=== PATIENT | female | born 1975 | race Caucasian/White ===

== ENCOUNTER → 2020-01-23 07:44 | Outpatient (CLI) | payer OTHER, SELFPAY ==
--- NOTE | ~2020-01-23 | MM_ITS ---
EXAMINATION: MM diagnostic [facility] BI w khadijah HISTORY: Six-month follow-up of probable benign right breast mammographic asymmetry and benign left b reast calcifications TECHNIQUE: Additional 3-D tomosynthesis images of were performed and synthetic 2-D images were genera neeru. CAD analysis was submitted and interpreted. COMPARISON: 04/10/2019 bilateral diagnostic digital mammogram and limited right breast ultrasound 01/13/2017 bilateral digital screening mammogram Density: There are scattered areas of fibroglandular density. FINDINGS: There are multiple grouped microcalcifications in the very posterior lower central left zee ast slightly lateral to midline, associated fat density. These are likely calcifications of fat necro sis. No suspicious mass, architectural distortion., Malignant calcification, skin thickening or retraction or significant new or developing density is evident since 01/13/2017. IMPRESSION: 1. No mammographic evidence of malignancy 2. Routine mammographic screening is recommended. BI-RADS Category 2: Benign finding(s). Reviewed, dictated and finalized at location A.
== END ==
PROVIDERS: Visit Provider Obstetrics & Gynecology
DX: R92.8 Other abnormal and inconclusive findings on diagnostic imaging of breast (principal)
CPT/HCPCS: 77062; 77066; G0279

== ENCOUNTER 2021-04-02 09:28 | Emergency (ER) | payer OTHER, SELFPAY ==
[2021-04-02 09:38] VITALS: BP 121/81; PULSE 95; RESP 16; TEMP 36.2; O2SAT 98
--- NOTE | 2021-04-02 10:24 | ED.URI ---
HPI - URI/Sore Throat General Chief Complaint: Upper Respiratory Infection Stated Complaint: Sore Throat Time Seen by Provider: 04/02/21 10:24 Source: patient and RN notes reviewed Mode of arrival: ambulatory Limitations: no limitations History of Present Illness HPI Narrative: 45-year-old female presents with concern for sore throat. Reports sore throat started Monday, on she began having chills. Reports chills and general malaise yesterday. She denies cough, shortness of breath, rhinorrhea, nasal congestion. Reports mild headache. Denies any known sick exposure. Just back here bites and I have been reports she just MD elicited complaint: sore throat Related Data Home Medications Medication Instructions Recorded Confirmed No Home Medications 04/02/21 04/02/21 Allergies Allergy/AdvReac Type Severity Reaction Status Date / Time No Known Allergies Allergy Verified 04/02/21 09:44 Review of Systems Review of Systems: CONSTITUTIONAL: Reports malaise, sweats, chills EYES: Denies visual changes, redness, or discharge. ENT: Denies rhinorrhea, congestion, sinus pain, otalgia. Reports sore throat. CARDIOVASCULAR: Denies chest pain, palpitations, or edema. RESPIRATORY: Denies cough or dyspnea. GASTROINTESTINAL: Denies abdominal pain, nausea, vomiting, diarrhea SKIN: Denies rash or itching. MUSCULOSKELETAL: Denies myalgia. NEUROLOGIC: Denies headache. All systems reviewed & are unremarkable except as noted in HPI and below PMFSH Past Medical History Medical History (Updated 04/02/21 @ 10:33 by Orly Meyer NP) Ectopic Surgical History Surgical History (Updated 06/08/19 @ 09:24 by Felicita Fraser, [facility], ) H/O left nephrectomy Social History Social History Smoking status: Former smoker Alcohol intake: current Comments At time of signature, agree with nursing past medical, surgical, social and family history. There is no relevant family history pertinent to the presenting complaint Exam Narrative: GENERAL: Well-appearing, well-nourished, and in no acute distress. HEAD: Normocephalic EYES: PERRLA, conjunctivae clear ENT: Nares clear, no discharge. Mucous membranes moist. TM pearly galindo with sharp light reflex bilaterally; no tragal tenderness. Oropharynx erythematous without lesions. Tonsils enlarged and without exudate, no drooling, no hoarseness, no trismus, uvula midline. NECK: Supple. No lymphadenopathy CHEST: Clear to auscultation, breath sounds equal. No wheezing, rhonchi, rales, or stridor. No respiratory distress, speaks in full sentences. HEART: Regular rate and rhythm. No murmur heard. SKIN: Warm, dry, no rash. NEURO: Alert and oriented x3. PSYCH: Normal mood and affect Course Course Emergency Course: Patient is aware of diagnosis, understands and agrees to treatment plan. Anticipatory guidance given. Patient agrees to follow-up as directed and is aware of reasons to seek care at the emergency department. Portions of this record may have been created with voice recognition software Vital Signs Vital signs: Vital Signs Temperature 97.2 F L 04/02/21 09:38 Pulse Rate 95 04/02/21 09:38 Respiratory Rate 16 04/02/21 09:38 Blood Pressure 121/81 04/02/21 09:38 Pulse Oximetry 98 04/02/21 09:38 Temperature 97.2 F L 04/02/21 09:38 Pulse Rate 95 04/02/21 09:38 Respiratory Rate 16 04/02/21 09:38 Blood Pressure 121/81 04/02/21 09:38 Pulse Oximetry 98 04/02/21 09:38 Reviewed. MDM - URI/Sore Throat MDM Narrative Medical decision making narrative: Differential diagnosis considered: Herrera virus, strep pharyngitis, allergic rhinitis, upper respiratory tract infection, sinusitis, rhinosinusitis, nasopharyngitis. viral pharyngitis, otitis media, otitis externa, pneumonia, bronchitis, viral cough syndrome, viral syndrome, and influenza. Exam findings show no acute concerns or changes; patient is non-toxic appearing and is in no distress. Keven
== END 2021-04-02 10:40 | disposition home or self-care (01) ==
PROVIDERS: Emergency Provider Nurse Practitioner
DX: J02.0 Streptococcal pharyngitis (principal); Z90.5 Acquired absence of kidney; Z87.891 Personal history of nicotine dependence
CPT/HCPCS: 87880; 99213; G0463

== ENCOUNTER 2021-06-27 10:44 | Emergency (ER) | payer OTHER, SELFPAY ==
--- NOTE | ~2021-06-27 | XR_ITS ---
EXAMINATION: XR chest 2V EXAM DATE: 06/27/2021 12:11 INDICATION: Cough; non smoker. TECHNIQUE: Frontal and lateral projections of the chest obtained and reviewed. Comparison is made to prior examination from 12/15/2014. FINDINGS: The lungs are clear. There are no pleural effusions. The cardiomediastinal silhouette is within normal limits. There is no pneumothorax suspected. The bones and soft tissues are unremarkab le. IMPRESSION: No acute cardiopulmonary findings. Reviewed, dictated and finalized at location A. [employer]
--- NOTE | 2021-06-27 11:58 | ED.GENADULT ---
HPI - General Adult General Chief complaint: Upper Respiratory Infection Stated complaint: cough,wheezing Source: patient Mode of arrival: ambulatory Limitations: no limitations History of Present Illness HPI narrative: Patient presents for evaluation of respiratory for the last week. She reports productive cough of clear sputum with clear rhinorrhea, wheezing and shortness of breath. She took a Covid test at home 5 days ago which was. She called her primary care provider in the middle of last week and received a prescription for prednisone 20 mg with directions take 1 by mouth twice daily for 5 days, azithromycin, Tessalon Perles, albuterol. She has not had considerable improvement in her symptoms since that time. She indicates she had strep a little over a month ago and completed azithromycin which seemed to help. Her mother has some respiratory symptoms as well. She states she had COVID in the past and has also received both doses of her COVID vaccination. She does not smoke. She has experienced some diarrhea but denies fever, chills, nausea, vomiting. She states she has had pneumonia in the past. Related Data Home Medications Medication Instructions Recorded Confirmed No Home Medications 04/02/21 04/02/21 Allergies Allergy/AdvReac Type Severity Reaction Status Date / Time No Known Allergies Allergy Verified 06/27/21 11:22 Review of Systems Review of Systems: CONSTITUTIONAL: Denies fever, chills, or sweats. EYES: Denies visual changes, redness, or discharge. ENT: Reports clear rhinorrhea. Denies otalgia or difficulty swallowing CARDIOVASCULAR: Denies chest pain, palpitations, or edema. RESPIRATORY: Reports cough with shortness of breath and wheezing GASTROINTESTINAL: Reports diarrhea. Denies abdominal pain, nausea, or vomiting GENITOURINARY: Denies dysuria or hematuria. SKIN: Denies rash or itching. MUSCULOSKELETAL: Denies back pain, joint pain, or myalgia. NEUROLOGIC: Denies headache, numbness, dizziness, or weakness. PSYCHIATRIC: Denies anxiety or depression. [facility] Past Medical History Medical History (Updated 06/27/21 @ 12:46 by Danyel Obrien, TAMY, ) Ectopic Surgical History Surgical History H/O left nephrectomy History of heart surgery Family History Family History Mother Breast cancer Father Alzheimer's dementia Social History Social History Smoking status: Former smoker Alcohol intake: current Substance use type: marijuana Other substance usage details: occasional Living arrangements: with family Gender identity (if verbalized by the patient): Female Sexual Orientation (if Verbalized by the Patient): Straight or Heterosexual Spiritual care concerns: No Exam Narrative: GENERAL: Well-appearing, well-nourished, and in no acute distress. HEAD: Normocephalic, atraumatic. EYES: PERRLA and EOMI. ENT: Nares clear, no rhinorrhea or epistaxis. Mucous membranes moist. Oropharynx without tonsillar hypertrophy exudate or other lesions. Bilateral TMs pearly galindo nonbulging NECK: Supple. No adenopathy or masses. No carotid bruits or JVD CHEST: Mild inspiratory and expiratory wheezing. Cough noted on exam HEART: Regular rate and rhythm. No murmur heard. Normal peripheral pulses. ABDOMEN: Soft, nontender, nondistended, normal active bowel sounds. EXTREMITIES: Normal range of motion. No edema. SKIN: Warm, dry, no rash. NEURO: No focal deficits. Alert and oriented x3. PSYCH: Normal mood and affect. Course Course Emergency Course: This a 46-year-old female who presented with complaints of respiratory symptoms. Chest x-ray was negative. Influenza and Covid were negative. She declined strep screening. Likely viral illness. Provided with nebulizer treatment here. She states t
[2021-06-27] MEDS: ALBUTEROL SULFATE NEB 2.5 MG/3 ML INH INHALATION (12:12)
[2021-06-27] MEDS: IPRATROPIUM BR 0.02% INH SOLN 0.5 MG/2.5 ML VIAL INHALATION (12:13)
[2021-06-27 12:37] VITALS: PULSE 72; RESP 18; O2SAT 98
== END 2021-06-27 12:57 | disposition home or self-care (01) ==
PROVIDERS: Emergency Provider Nurse Practitioner; PCP Family Medicine
DX: B34.9 Viral infection, unspecified (principal); Z20.822 Contact with and (suspected) exposure to COVID-19; Z87.891 Personal history of nicotine dependence; Z90.5 Acquired absence of kidney
CPT/HCPCS: 71046; 87426; 87804; 94640; 99213; C9803; G0463

== ENCOUNTER 2023-04-24 14:00 | Outpatient (CLI) | payer BC, OTHER, SELFPAY ==
--- NOTE | ~2023-04-24 | MM_ITS ---
EXAMINATION: MM screening [facility] BI w khadijah HISTORY: Screening mammogram TECHNIQUE: Craniocaudal and mediolateral oblique 3-D tomosynthesis images were obtained and synthetic 2-D images were generated. CAD analysis was submitted and interpreted. COMPARISON: 01/23/2020, 04/10/2019, 03/29/2019 BREAST PARENCHYMAL COMPOSITION: There are scattered areas of fibroglandular density. FINDINGS: Oil cysts are noted in the right breast. No suspicious mass, calcification, or architectura l distortion are identified in either breast to suggest malignancy. There has been no suspicious inte rval change. IMPRESSION: 1. No mammographic evidence of malignancy. 2. Recommend routine screening mammography in one year. BI-RADS Category 2: Benign finding(s). Reviewed, dictated and finalized at location A.
== END 2023-04-24 14:01 | disposition home or self-care (01) ==
LOC: ANHIMG 14:06
PROVIDERS: PCP Family Medicine; Visit Provider Obstetrics & Gynecology
DX: Z12.31 Encounter for screening mammogram for malignant neoplasm of breast (principal)
CPT/HCPCS: 77063; 77067

== ENCOUNTER 2023-08-21 01:04 | Day surgery (SDC) | payer BC, OTHER, SELFPAY ==
[2023-07-25 11:49] VITALS: BMI 29.4
--- NOTE | 2023-08-18 12:10 | SUR.PREOP ---
Patient called regarding upcoming procedure. Voicemail left regarding appointment times.
[2023-08-21 06:22] VITALS: BP 147/65; PULSE 66; RESP 18; TEMP 36.3; O2SAT 96
[2023-08-21] MEDS: LACTATED RINGERS 1,000 ML 150 ML IV CONT (06:41)
--- NOTE | 2023-08-21 06:42 | P.PNAN_ITS ---
Anes - Initial Pre Proc Eval Procedure: Operation Date: 08/21/23 07:30 Proposed Procedures p Screening Colonoscopy - Dhaval Kenney MD Date/Time: 08/21/23 06:42 Surgeon: Dhaval Kenney MD Pre Op Diagnosis: neoplasm screening Patient Data Age: 48 Gender: F Height: 1.78 m Weight: 93.4 kg Allergies Allergy/AdvReac Type Severity Reaction Status Date / Time No Known Allergies Allergy Verified 08/21/23 06:21 Home Medications Medication Instructions Recorded Confirmed Type No Home Medications 07/25/23 07/25/23 History Patient hx anesthesia problems: none Family hx anesthesia problems: none Results Review: All pre-operative results and documents have been reviewed as part of the pre- operative evaluation. [facility] Past Medical History Medical History (Updated 08/21/23 @ 06:43 by Ian Mcginnis MD) Depression Ectopic Surgical History Surgical History H/O left nephrectomy History of bilateral breast reduction surgery History of heart surgery History of tubal ligation Family History Family History Mother Breast cancer Father Alzheimer's dementia Social History Social History Smoking status: Former smoker Tobacco type: cigarettes Alcohol intake: current Drinks per week: 10 Substance use: current Substance use type: marijuana Other substance usage details: occasional Last use: once a month Living arrangements: with family Gender identity (if verbalized by the patient): Female Sexual Orientation (if Verbalized by the Patient): Straight or Heterosexual Spiritual care concerns: No Anes - Eval Final PreProcedure Day of Procedure 08/21/23 06:42 Patient weight: overweight Heart: regular rate and rhythm Lungs: clear to auscultation Airway: Mallampati scale class II Neurological: alert and oriented Last oral intake: >/= 8 hours ASA classification: II Emergent: no Anesthetic plan: proceed Anesthesia type and monitoring: general GIVS and standard monitoring Results Review: All pre-operative results and documents have been reviewed as part of the pre- operative evaluation. Informed Consent: The patient's anesthetic plan and its attendant risks and benefits were discussed with the patient/family/POA. Questions were solicited and answers provided to the satisfaction of the patient/family/POA.
--- NOTE | 2023-08-21 07:28 | PM.HPGS ---
History of Present Illness History of Present Illness Consent: Risks, benefits, and alternatives have been discussed and questions answered. Patient agrees to proceed with procedure. Chief complaint: neoplasm screening Narrative: Claritza Villa is a 48 year old female here for first screening colonoscopy Review of Systems Constitutional: Constitutional: Denies headache(s) and Denies weakness Eyes: Eyes: Denies blurry vision ENT: Reports Normal hearing present, Denies headache(s) and Denies neck pain Cardiovascular: Cardiovascular: Denies chest pain and Denies dyspnea Respiratory: Respiratory: Denies dyspnea Gastrointestinal: Gastrointestinal: Reports no additional gastrointestinal complaints Genitourinary: Genitourinary: Denies dysuria Musculoskeletal: Musculoskeletal: Denies neck pain Integumentary/Breasts: Skin/Breast: Denies dry skin Neurologic: Reports Normal hearing present, Denies headache(s) and Denies weakness Psychiatric: Psychiatric: Denies anxiety Endocrine: Endocrine: Denies change in body appearance Hematologic/Lymphatic: Hematologic/Lymphatic: Denies easy bleeding Allergic/Immunologic: Allergic/Immunologic: Denies urticaria PMFSH Past Medical History Medical History (Updated 08/21/23 @ 07:28 by Dhaval Kenney MD) Colon cancer screening Depression Ectopic Surgical History Surgical History H/O left nephrectomy History of bilateral breast reduction surgery History of heart surgery History of tubal ligation Family History Family History Mother Breast cancer Father Alzheimer's dementia Social History Social History Smoking status: Former smoker Tobacco type: cigarettes Alcohol intake: current Drinks per week: 10 Substance use: current Substance use type: marijuana Other substance usage details: occasional Last use: once a month Living arrangements: with family Gender identity (if verbalized by the patient): Female Sexual Orientation (if Verbalized by the Patient): Straight or Heterosexual Spiritual care concerns: No Meds Home Medications and Allergies Home Medications Medication Instructions Recorded Confirmed Type No Home Medications 07/25/23 07/25/23 History Allergies Allergy/AdvReac Type Severity Reaction Status Date / Time No Known Allergies Allergy Verified 08/21/23 06:21 Exam Const: General: comfortable and no acute distress HENMT: Face/Nose/Sinus: Normal nares present Eyes: General: appearance normal, both eyes and all related structures Neck: Neck: no JVD Resp: Auscultation: clear to auscultation bilaterally Cardio: Rate: regular rate Rhythm: regular rhythm GI: Inspection: non-distended GI Palp: Yes Soft to palpation Skin: General skin exam: normal color Neuro: General: gait normal Speech: normal speech Extrem: General: normal to inspection Psych: Mental Status: mental status grossly normal Assessment and Plan Assessment and plan (1) Colon cancer screening: Code(s): Z12.11 - Encounter for screening for malignant neoplasm of colon Status: Acute Assessment and Plan: colonoscopy
[2023-08-21 07:51] VITALS: BP 107/63; PULSE 57; RESP 23; O2SAT 96
[2023-08-21 08:01] VITALS: BP 125/60; PULSE 53; RESP 18; O2SAT 100
[2023-08-21 08:11] VITALS: BP 142/80; PULSE 61; RESP 19; O2SAT 100
== END 2023-08-21 08:20 | disposition home or self-care (01) ==
PROVIDERS: PCP Family Medicine; Visit Provider Internal Medicine Gastroenterology
PROC: 0DJD8ZZ Inspection of Lower Intestinal Tract, Via Natural or Artificial Opening Endoscopic (ICD-10-PCS; CPT 45378; principal; 2023-08-21 07:30)
DX: Z12.11 Encounter for screening for malignant neoplasm of colon (principal); K64.8 Other hemorrhoids; K57.30 Diverticulosis of large intestine without perforation or abscess without bleeding; F32.A Depression, unspecified; F12.90 Cannabis use, unspecified, uncomplicated; Z98.890 Other specified postprocedural states; Z87.891 Personal history of nicotine dependence; Z80.3 Family history of malignant neoplasm of breast
CPT/HCPCS: 45378; J2704; J7120

== ENCOUNTER 2025-06-06 01:26 | Day surgery (SDC) | payer BC, SELFPAY ==
--- NOTE | 2025-05-31 15:59 | HP_ITS ---
This report was moved to the correct visit on 06/09/2025. The original report was signed by Nik Norris MD on 05/31/25 [id number]. H&P: HPI History of Present Illness Date/Time: 05/31/25 15:58 Chief Complaint: Procedure Narrative: stress urinary incontinence Review of Systems Review of Systems: All systems reviewed & are unremarkable except as noted in HPI and below PMFSH Past Medical History Medical History Colon cancer screening Depression Ectopic Surgical History Surgical History History of bilateral breast reduction surgery History of tubal ligation History of heart surgery H/O left nephrectomy Family History Family History Mother Breast cancer Father Alzheimer's dementia Social History Social History Years smoked: 8 Smoking status: Former smoker Tobacco type: cigarettes Alcohol intake: current Drinks per week: 3 Substance use: current Substance use type: marijuana Other substance usage details: gummies 2/month Last use: once a month Living arrangements: alone Additional living arrangements comments: daugher with shared custody 70% of the time. Gender identity (if verbalized by the patient): Female Sexual Orientation (if Verbalized by the Patient): Straight or Heterosexual Spiritual care concerns: No Meds Home Medications and Allergies Home Medications ?Medication ?Instructions ?Recorded ?Confirmed ?Type multivitamin (One Daily 1 tablet PO DAILY 04/14/25 04/14/25 Hist ory Multivitamin tablet) tirzepatide 15 mg/0.5 mL 15 mg subcut WEEKLY 04/14/25 04/14/25 Hi story subcutaneous pen injector (Mounjaro) Allergies Allergy/AdvReac Type Severity Reaction Status Date / Time No Known Allergies Allergy Verified 04/14/25 16:09 Exam Narrative: urethral mobility noted Assessment and Plan Assessment and plan (1) LUISA (stress urinary incontinence, female): Code(s): N39.3 - Stress incontinence (female) (male) Status: Acute Assessment and Plan: urethral sling/cystoscopy Please be advised this is a medical document. It is intended for [id number] communication. It is written in medical language and may contain unfamiliar abbreviations or verbiage. Medical documents are intended to carry relevant information, facts as evident, and the clinical opinion of the practitioner at the time of the encounter. This report may have been done utilizing a voice recognition system. Attempts have been made to correct errors. However, there may be uncorrected grammatical, spelling, and recognition errors present. The file time of this note does not necessarily represent the time the patient was seen. Report Initialized date/time: Nik Norris MD 05/31/25 155 Electronically signed by: Nik Norris MD 05/31/25 [id number]
[2025-06-04 09:34] VITALS: BMI 25.1
--- NOTE | 2025-06-04 09:45 | PC.NURSE ---
[facility] has started construction of its new state of the art ER which will open Spring 2026. With this, we anticipate parking may be a challenge for some our surgical patients and families. Parking spaces are limited but are available for all Surgical, obstetrics, and ER patients sharing this lot. If you arrive and find you are having a hard time finding a parking space, please note that we understand the challenges, please drive around the hospital and park near Hospital Entrance 1. When you enter this entrance, you can ask a volunteer to direct or take you back to the surgical waiting area to check in. We appreciate everyone?s understanding of these expected challenges while we build for your future. Report to the Outpatient Waiting Room, entrance under the green pavilion located off [address], at time _0745 on date _06/06/25_. Planned Procedure Time: 0945.? Time changes happen often and if your time is changed the preop area will call you the afternoon before. - You and your visitor will be asked to self-screen and do not enter if you have any COVID symptoms. Please call surgeon if you need to reschedule. - A mask is optional within the hospital at this time. Patients may have clear liquids (water, carbonated beverages, clear teas, apple juice) until 3 hours prior to surgery with a maximum of 20 ounces. - No food from midnight until time of surgery and no smoking, or chewing tobacco (or any form of nicotine). No chewing gum, candy or mints. . Take only the following medications with a SIP of water on the morning of surgery: ____NONE DO NOT STOP ANY OF YOUR OTHER PRESCRIPTION MEDICATIONS PRIOR TO SURGERY EXCEPT THE FOLLOWING Hold all vitamins and supplements for 3 days per anesthesiologist. Medications to discontinue per physician Date to take last dose Please no make-up, nail albanian, hairspray, perfume, deodorant, or body powder the day of surgery.? No jewelry (including any body piercings) or valuables the day of surgery, leave them at home.? Please take a shower or bath the night before, or the morning of, surgery with an antibacterial soap.? Wear comfortable, loose fitting clothing.? Children are encouraged to wear pajamas. - Jewelry must be removed prior to entering the operating room.? Rings and piercings that are not removed may be cut off. - The hospital will not accept responsibility for valuables.? - Please leave all valuables, including medications, at home the day of surgery. If you are going home after surgery, a licensed regional company flatbed truck driver must drive you home.? - NO public transportation without another adult if you receive anesthesia. - We recommend that an adult stay with you for 24 hours following discharge. - We also recommend that you do not drive, make important decision, drink alcoholic beverages, or take any drugs that were not prescribed by your health care provider for at least 24 hours after your discharge time. For Pediatric surgeries, we recommend two adults accompany the child home. Follow any additional instructions given to you from your surgeon. Telephone instructions given to _PATIENT_and asked if any additional questions and then verbalized understanding. Patient advised to call surgeon office or pre surgery nurse liaison [phone] if any additional questions.
--- OUTSIDE RECORDS SUMMARY | 2025-06-06 01:29 | XMS_ITS | Clinical Summary ---
Author Organization [facility] Address [address] [place] [address] Care Team Providers Care Cured Meats Supervisor Name Role Phone Unavailable Primary Care Provider Unavailabl e Source Comments [facility],non-owned Affiliates and Associated Physician Practices is amultiple site organization consisting of ambulatory clinics and hospital sitesin [place], [place], [place] and [place]. This disclosure is being madepursuant to the Care Everywhere program and may not contain all information available regarding this patient. Last updated 18.[facility] [employer] Allergies No known active allergies Medications * Be aware that medications may not be up to date on this document. Alwaysverify current medications with the patient. crisaborole (EUCRISA) 2 % ointment Apply to affected area 2 times daily Active Glycopyrronium Tosylate (QBREXZA) 2.4 % PADS 1 applicator by Apply externally route at bedtime . 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 Multiple benign nevi 08/21/2018 Rash and other nonspecific skin eruption 019 Family History Medical History Relation Name Comments Cancer - Skin, Non Melanoma Maternal Grandmother Cancer - Skin, Melanoma Neg Hx Relation Name Status Comments Maternal Grandmother Social History Tobacco Use Types Packs/Day Years Used Date Smoking Tobacco: Former Cigarettes Smokeless Tobacco: Never Alcohol Use Standard Drinks/Week Comments Yes 0 (1 standard drink = 0.6 oz pur e alcohol) weekly Comments Unknown Sex and Gender Information Value Date Recorded Sex Assigned at Not on file Legal Sex Female 3:11 PM SUGAR PRESSER Gender Identity Not on file Sexual Orientation Not on file Last Filed Vital Signs Vital Sign Reading Time Taken Comments Blood Pressure 106/80 08/21/2018 10:32 AM SUGAR PRESSER Pulse 66 08/21/2018 10:32 AM SUGAR PRESSER Temperature - - Respiratory Rate - - Oxygen Saturation - - Inhaled Oxygen Concentration - - Weight 86.2 kg (190 lb) 08/21/2018 10:32 AM SUGAR PRESSER Height 176.5 cm (5' 9.5) 08/21/2018 10:32 AM CS T Body Mass Index 27.66 08/21/2018 10:32 AM SUGAR PRESSER Plan of Treatment Health Maintenance Due Date Last Done Comments COLOGUARD (AGES 45-75) - COL ON CA SCREENING 1973 COLON MONITORING 1973 COLONOSCOPY - COLON CA SCREENING 1973 CT COLONOGRAPHY - COLON CA SCREENING 1973 Colorectal Cancer Screening 1973 FIT - COLON CA SCREENING 1973 FLEX SIG - COLON CA SCREENING 1973 LIPID TESTING 1973 MAMMOGRAM 1973 HIV SCREENING 1988 HEPATITIS C SCREENING 06/17/1991 DTAP/TDAP/TD VACCINES (1 - Tdap) 1992 HEPATITIS B VACCINE (1 of 3 - 19+ 3-dose series) 1992 SCREENING FOR DIABETES 08/22/2018 PNEUMOCOCCAL VACCINE 50+ (1 of 1 - PCV) 2023 ZOSTER VACCINE (1 of 2) 2023 DEPRESSION SCREENING 06/26/2024 COVID-19 VACCINE (1 - 2024-2 6 season) 2025 INFLUENZA VACCINE (#1) 2025 HIB VACCINE Aged Out No longer eligi ble based on patient's age to complete this topic HPV VACCINE Aged Out No longer eligi ble based on patient's age to complete this topic MENINGOCOCCAL (Group B) VACC INE SHARED DECISION-MAKING Aged Out No longer eligibl e based on patient's age to complete this topic MENINGOCOCCAL GROUPS A/C/Y/W VACCINE Aged Out No longer eligible b ased on patient's age to complete this topic [place] [address]
--- OUTSIDE RECORDS SUMMARY | 2025-06-06 01:29 | XMS_ITS | Clinical Summary ---
Author Organization [facility] Address [address] [place] [id number] Care Team Providers Care Switch Adjuster Name Role Phone Divina Garcia MD Primary Care Provider + Allergies No known active allergies Medications TIRZEPATIDE-WEIG HT MANAGEMENT SC Inject 35 Units into the skin once a week. Active Active Problems Problem Noted Date Diagnosed Date Vitamin D deficiency 05/28/2023 Encounters Date Type Department Care Team Description 04/11/2025 Results Follow-Up [facility] Family [facility] - [place] [address] [id number] Divina Garcia MD HEMOGLOBIN, GLYCOSYLATED, LIPID PANEL, COMPREHENSIVE METABOLIC PANEL, VITAMIN D, 25 OH from Last 3 Months Immunizations Immunization Administration Dates Next Due Influenza (Generic) 04/10/2020 Influenza Adult (Generic) 06/15/2023,05/04/2021 Shingrix 01/27/2025 Tdap (Adacel) 01/27/2025 Family History Medical History Relation Comments No Known Problems Brother No Known Problems Daughter Frontotemporal dementia Father at 63 Accidental Mother Breast Cancer Mother No Known Problems Son Relation Status Comments Brother Alive Daughter Alive Father Mother Son Alive Social History Tobacco Use Types Packs/Day Years Used Date Smoking Tobacco: Some Days Cigarettes Passive Smoke Exposure: Past Smokeless Tobacco: Never Tobacco Cessation:Ready to Q uit: No; Counseling Given: Yes Comments:socially Alcohol Use Standard Drinks/Week Comments Yes 0 (1 standard drink = 0.6 oz pure alcohol) social, average 3 nights/week, 2 glasses of wine Comments No Sex and Gender Information Value Date Recorded Sex Assigned at Not on file Legal Sex Female 10:15 AM CDT Gender Identity Not on file Sexual Orientation Not on file Last Filed Vital Signs Vital Sign Reading Time Taken Comments Blood Pressure 166/96 01/27/2025 1:49 PM CDT Pulse 75 01/27/2025 1:13 PM CDT Temperature 36.9 C (98.5 F) 01/27/2025 1:13 PM CDT Respiratory Rate - - Oxygen Saturation 98% 01/27/2025 1:13 PM CDT Inhaled Oxygen Concentration - - Weight 76.9 kg (169 lb 9.6 oz) 01/27/2025 1:13 P M CDT Height 174 cm (5' 8.5) 01/27/2025 1:13 PM CDT Body Mass Index 25.41 01/27/2025 1:13 PM CDT Plan of Treatment Upcoming Encounters Date Type Department Care Team (Late st Contact Info) Description 01/29/2026 1:00 PM CDT Office Visit [facility] Family Medicine - [place] [address] [facility] [address] [place] [id number] Divina Garcia MD [address] [place] [id number] Health Maintenance Due Date Last Done Comments Cervical Cancer Screening Pa p Smear (Age 30 to 64) Every 3 Years 1973 Hepatitis C 1991 Hepatitis B Vaccines (1 of 3 - 19+ 3-dose series) 1992 Pneumococcal Vaccine: 50+ Years (1 of 2 - PCV) 1992 Mammogram Screening 03/29/2021 03/29/2019 PHQ-2 (Physician [place]) 06/26/2024 COVID-19 Vaccine (3 - 2024-2 6 season) 2025 11/24/2020, 10/27/2020 Zoster Vaccines (2 of 2) 03/24/2025 01/27/2025 Influenza Adult (#1) 2025 06/15/2023, 05/04/2021, 04/10/2020 Annual Physical 01/27/2026 01/27/2025 Cervical Cancer Screening Pa p with HPV Testing (Age 30 to 64) Every 5 Years 07/18/2027 07/18/2022 Cervical Cancer Screening wi th HPV 07/18/2027 Colorectal Cancer Screening Colonoscopy (10 Years) 08/21/2033 08/21/2023 DTaP, Tdap and Td Vaccines ( 2 - Td or Tdap) 01/27/2035 01/27/2025 Hepatitis A Vaccines Aged Out No long er eligible based on patient's age to complete this topic Meningococcal B Vaccine Aged Out No l onger eligible based on patient's age to complete this topic Meningococcal Vaccine Aged Out No jhonathan mauricio eligible based on patient's age to complete this topic RSV Immunizations Under 20 Months Aged Out No longer eligible b ased on patient's age to complete this topic Procedures Procedure Name Priority Date/Time Associated Diagnosis Comments VITAMIN D, 25 OH Today 04/10/2025 6:24 AM CDT Routine general medical examination at a health care facility COMPREHENSIVE METABOLIC PANEL Today 04/10/2025 6:24 AM CDT Routine general medical examination at a health care facility LIPID PANEL Today 04/10/2025 6:24 AM CDT Routine general medical examination at a health care facility HEMOGLOBIN, GLYCOSYLATED Today 04/10/2025 6:24 AM CDT Routine general medical examination at a [facility] care facility COLONOSCOPY GENERIC (SCAN ORDER) 08/21/2023 OUTSIDE CYTOPATH CERV/VAG INTERPRET (PAP) 07/18/2022 MG SCREENING W FARHEEN TYREE DIGI Routine 03/29/2019 12:00 AM CDT Encounter for mammogram to establish baseline mammogram from Last 3 Months or Most Recently Relevant to Health Maintenance Results * HEMOGLOBIN, GLYCOSYLATED (04/10/2025 6:24 AM CDT) HGB A1C 5.2 <5.7 % of total Hgb [facility] [place] Comment: For the purpose of screening for the presence of diabetes: <5.7% Consistent with the absence of diabetes 5.7-6.4% Consistent with increased risk for diabetes (prediabetes) > or =6.5% Consistent with diabetes This assay result is consistent with a decreased risk of diabetes. Currently, no consensus exists regarding use of hemoglobin A1c for diagnosis of diabetes in children. According to [place] Diabetes Association (ADA) guidelines, hemoglobin A1c <7.0% represents optimal control in non- diabetic patients. Different metrics may apply to specific patient populations. Standards of Medical Care in Diabetes(ADA). 04/10/2025 6:24 AM CDT 04/10/2025 6:25 AM CDT Narrative [facility] [place] [facility] - 04/11/2025 2:27 AM CDT FASTING:YES FASTING: YES Resulting Agency Comment Performing Organization Information: Site ID: [place] Name: [facility] Address: [address] [place] [id number] Director: Gerald Dallas iDvina Garcia MD LABORATORY Final Re sult [facility] [place] [facility] [id number], * COMPREHENSIVE METABOLIC PANEL (04/10/2025 6:24 AM CDT) Pathologist [facility] GLUCOSE 94 65 - 99 mg/dL [facility] Comment: Fasting reference interval BUN 14 7 - 25 mg/dL [facility] CREATININE S/P/B 0.80 0.50 - 1.03 mg/dL [facility] GFR ESTIMATE 89 > OR = 60 mL/min/1. 73m2 [facility] BUN CREATININE RATIO SEE NOTE: (calc) [facility] Comment: Not Reported: BUN and Creatinine are within reference range. SODIUM S/P/B 138 135 - 146 mmol/L [facility] [place] POTASSIUM S/P/B 4.5 3.5 - 5.3 mmol/L [facility] [place] CHLORIDE S/P/B 103 98 - 110 mmol/L [facility] [place] CO2 32 20 - 32 mmol/L [facility] [place] CALCIUM S/P/B 9.4 8.6 - 10.4 mg/dL [facility] [place] TOTAL PROTEIN S/P/B 6.6 6.1 - 8.1 g/dL [facility] [place] ALBUMIN S/P/B 4.3 3.6 - 5.1 g/dL [facility] GLOBULIN 2.3 1.9 - 3.7 g/dL (calc) [facility] ALBUMIN/GLOBULI N RATIO 1.9 1.0 - 2.5 (calc) [facility] BILIRUBIN TOTAL S/P/B 0.6 0.2 - 1.2 mg/dL [facility] ALKALINE PHOSPHATASE S/P/B 45 37 - 153 U/L [facility] AST 19 10 - 35 U/L [facility] ALT 17 6 - 29 U/L [facility] 04/10/2025 6:24 AM CDT 04/10/2025 6:25 AM CDT Narrative [facility] [place] - 04/11/2025 2:27 AM CDT FASTING:YES FASTING: YES Resulting Agency Comment Performing Organization Information: Site ID: [place] Name: [facility] Address: [address] [place] [phone] Director: Gerald Dallas MD us Divina Garcia MD LABORATORY Final Re sult [facility] [id number] [place] [id number], IT * (ABNORMAL) LIPID PANEL (04/10/2025 6:24 AM CDT) CHOLESTEROL 201(H) <200 mg/dL [facility] HDL 84 > OR = 50 mg/dL [facility] TRIGLYCERIDES 44 <150 mg/dL [facility] LDL (CALCULATED) 104(H) mg/dL (calc) [facility] Comment: Reference range: <100 Desirable range <100 mg/dL for primary prevention; <70 mg/dL for patients with CHD or diabetic patients with > or = 2 CHD risk factors. LDL-C is now calculated using the Ward calculation, which is a validated novel method providing better accuracy than the Friedewald equation in the estimation of LDL-C. See MUÑOZ et al. CIELO. 2013;310(19): 6798-6510 (http://education.[employer]gar.[employer]/faq/SHE966) CHOL/HDL RATIO 2.4 <5.0 (calc) [facility] NON HDL CHOLESTEROL 117 <130 mg/dL (calc) [facility] Comment: For patients with diabetes plus 1 major ASCVD risk factor, treating to a non-HDL-C goal of <100 mg/dL (LDL-C of <70 mg/dL) is considered a therapeutic option. 04/10/2025 6:24 AM CDT 04/10/2025 6:25 AM CDT Narrative [facility] - 04/11/2025 2:27 AM CDT FASTING:YES FASTING: YES Resulting Agency Comment Performing Organization Information: Site ID: [place] Name: [facility] Address: [address] [place] [address] Director: Gerald Dallas MD us Divina Garcia MD LABORATORY Final Re sult [facility] [address] [place] [address], * VITAMIN D, 25 OH (04/10/2025 6:24 AM CDT) Pathologist [facility] VITAMIN D 25 HYDROXY TOTAL S/P/B 39 30 - 100 ng/mL [facility] Comment: Vitamin D Status 25-OH Vitamin D: Deficiency: <20 ng/mL Insufficiency: 20 - 29 ng/mL Optimal: > or = 30 ng/mL For 25-OH Vitamin D testing on patients on D2-supplementation and patients for whom quantitation of D2 and D3 fractions is required, the QuestAssureD() 25-OH VIT D, (D2,D3), LC/MS/MS is recommended: order code [id number] (patients >2yrs). See Note 1 Note 1 For additional information, please refer to http://education.[employer]/faq/QCF595 (This link is being provided for informational/ educational purposes only.) 04/10/2025 6:24 AM CDT 04/10/2025 6:25 AM CDT Narrative [facility] - 04/11/2025 2:27 AM CDT FASTING:YES FASTING: YES Resulting Agency Comment Performing Organization Information: Site ID: [place] Name: [facility] Address: [address] [address] Director: Gerald Dallas MD Divina Garcia MD LABORATORY Final Re sult [facility] [place] [facility] NANCY MCKENZIE [facility] [address] [address], [place] * COLONOSCOPY GENERIC (SCAN ORDER) (08/21/2023) 08/21/2023 [facility] Scanned SCANNING Final Resu lt * PAP SMEAR WITH HPV (07/18/2022) 07/18/2022 [facility] Scanned SCANNING Final Resu lt * MG SCREENING W FARHEEN TYREE DIGI (03/29/2019 12:00 AM CDT) Anatomical Region Laterality Modality Breast Bilateral Mammography 03/29/2019 Divina Garcia MD MAMMO Edited R esult - Final from Last 3 Months or Most Recently Relevant to Health Maintenance [place] [address] [employer] [facility] Care Teams Switch Adjuster Relationship Specialty Start Date End Date Divina Garcia MD [address] [place] [id number] PCP - General FAMILY PRACTICE 01/27/25
--- NOTE | 2025-06-06 07:19 | HP_ITS ---
This report was moved to the correct visit on 06/09/2025. The original report was signed by Nik Norris MD on 06/06/25718. History and Physical Update Update Date/Time: 06/06/25 07:19 History and Physical has been reviewed, including an updated exam of the patient. There are NO changes in the patient's condition. Risks, benefits, and alternatives have been discussed and questions answered. Patient agrees to proceed with procedure. Please be advised this is a medical document. It is intended for [id number] communication. It is written in medical language and may contain unfamiliar abbreviations or verbiage. Medical documents are intended to carry relevant information, facts as evident, and the clinical opinion of the practitioner at the time of the encounter. This report may have been done utilizing a voice recognition system. Attempts have been made to correct errors. However, there may be uncorrected grammatical, spelling, and recognition errors present. The file time of this note does not necessarily represent the time the patient was seen. Report Initialized date/time: Nik Norris MD 06/06/25718 Electronically signed by: Nik Norris MD 06/06/25718
[2025-06-06 08:05] VITALS: BP 149/71; PULSE 74; RESP 16; TEMP 36.9; O2SAT 98; BMI 25.2
[2025-06-06] MEDS: LACTATED RINGERS 1,000 ML 30 ML IV CONT (08:45)
[2025-06-06 08:59] LABS: Anion Gap 4 mmol/L (4-12); Blood Urea Nitrogen 14 mg/dL (7-17); Calcium 9.2 mg/dL (8.4-10.2); Carbon Dioxide 28 mmol/L (22-30); Chloride 105 mmol/L (98-107); Estimated CRCL calculation 82 ml/min; Estimated Glomerular Filt Rate > 60; Glucose 82 mg/dL (65-110); Potassium 3.8 mmol/L (3.4-5.0); Sodium 137 mmol/L (137-145)
--- NOTE | 2025-06-06 09:15 | P.PNAN_ITS ---
Anes - Initial Pre Proc Eval Procedure: Operation Date: 06/06/25 09:45 Proposed Procedures p Urethral Sling, Cystoscopy - Nik Norris MD Date/Time: 06/06/25 09:15 Surgeon: Nik Norris MD Pre Op Diagnosis: stress incont Patient Data Age: 49 Gender: F Height: 1.73 m Weight: 75 kg Allergies Allergy/AdvReac Type Severity Reaction Status Date / Time No Known Allergies Allergy Verified 06/04/25 09:33 Home Medications ?Medication ?Instructions ?Recorded ?Confirmed ?Type multivitamin (One Daily 1 tablet PO DAILY 04/14/25 1 08/05/24 History Multivitamin tablet) tirzepatide 15 mg/0.5 mL 15 mg subcut WEEKLY 04/14/25 06/04/25 History subcutaneous pen injector (Mounjaro) Laboratory Tests 06/06/25 08:29 Sodium 137 mmol/L (137-145) Potassium 3.8 mmol/L (3.4-5.0) Chloride 105 mmol/L (98-107) Carbon Dioxide 28 mmol/L (22-30) Anion Gap 4 mmol/L (4-12) BUN 14 mg/dL (7-17) Creatinine 0.71 mg/dL (0.7-1.0) Estim Creat Clear Calc 82 ml/min Estimated GFR > 60 (59 - ) Glucose 82 mg/dL (65-110) Calcium 9.2 mg/dL (8.4-10.2) Patient hx anesthesia problems: none Family hx anesthesia problems: none Results Review: All pre-operative results and documents have been reviewed as part of the pre- operative evaluation. COUNTS INCLUDE 234 BEDS AT THE [facility] Past Medical History Medical History Colon cancer screening Depression Ectopic Surgical History Surgical History History of bilateral breast reduction surgery History of tubal ligation History of heart surgery H/O left nephrectomy Family History Family History Mother Breast cancer Father Alzheimer's dementia Social History Social History Smoking packs per day: 1 Smoking cigarettes per day: 20.0 Years smoked: 5 Smoking pack-years: 5.00 Smoking status: Former smoker Tobacco type: cigarettes Additional smoking assessment comments: QUIT 2022 Alcohol intake: current Drinks per week: 4 Substance use: current Substance use type: marijuana Other substance usage details: GUMMIES RARELY Last use: once a month Living arrangements: with family Additional living arrangements comments: daugher with shared custody 70% of the time. Gender identity (if verbalized by the patient): Female Sexual Orientation (if Verbalized by the Patient): Straight or Heterosexual Spiritual care concerns: No Anes - Eval Final PreProcedure Day of Procedure 06/06/25 09:15 Patient weight: overweight Heart: regular rate and rhythm Lungs: clear to auscultation Airway: Mallampati scale class II Neurological: alert and oriented Last oral intake: >/= 8 hours ASA classification: II Emergent: no Anesthetic plan: proceed Anesthesia type and monitoring: general GIVS and standard monitoring Results Review: All pre-operative results and documents have been reviewed as part of the pre- operative evaluation. Informed Consent: The patient's anesthetic plan and its attendant risks and benefits were discussed with the patient/family/POA. Questions were solicited and answers provided to the satisfaction of the patient/family/POA.
[2025-06-06] MEDS: ceFAZolin 2 GM in SODIUM CHLORIDE 0.9% IV 50 ML 100 ML IVPB (09:21)
[2025-06-06 09:22] LABS: BEDSIDEPREGUCG Negative (Negative)
[2025-06-06] MEDS: BUPIVACAINE/EPINEPHRINE 0.5% 50 ML VIAL 30 ML INFILTRATE (09:35)
[2025-06-06 09:50] VITALS: BP 128/68; PULSE 85; RESP 16
--- NOTE | 2025-06-06 09:56 | W.PM.PROC2 ---
Procedure Note - Detailed Date of Procedure 06/06/25 Pre-op Diagnosis stress incont Post-op Diagnosis Same Procedure Performed mid urethral sling cystoscopy Surgeon Nik Norris MD Anesthesia MAC and Local Indications This is a female with confirm stress urinary incontinence. She desires surgical correction. She understands the risks of bleeding, infection, injury to the urinary tract, vaginal mesh extrusion, urinary tract mesh erosion, obstructive voiding requiring a secondary procedure, hip and leg pain, dyspareunia, inability to improve overactive bladder symptoms. She agrees to proceed. Description of Procedure She was correctly identified. Informed consent obtained. She was brought the operating room. She was given appropriate anesthesia. She was given appropriate perioperative antibiotics. A time-out performed. I marked out the site of the inner thigh incisions. I anesthetized the skin and made those incisions. I anesthetized the anterior vaginal wall over the mid urethra. I made a 1 cm incision. I dissected out laterally taking great care not to injure the refilled vaginal wall. I passed the helical trocars. First on the left. Then on the right. I did this from the thigh incision towards the vaginal incision. The sling was connected to the trocars and brought out through the thigh incision. I tensioned the sling appropriately. I cut and the plastic sheaths. I then closed the incision with 2 0 Vicryl. On cystoscopy there is no tumors or surgical artifact. There was no surgical artifact in the urethra. I cut the excess sling material. Close incisions with glue. She was awakened and transferred to the PACU in stable condition. Implants Urethral sling Drains No Packing No Pathology None sent Complications No immediate complications Condition Stable Disposition PACU
[2025-06-06 10:20] VITALS: BP 146/75; PULSE 78; RESP 16; O2SAT 100
[2025-06-06 10:49] VITALS: BP 158/87; PULSE 79; RESP 16
[2025-06-06 11:04] VITALS: BP 155/84; PULSE 81; RESP 16
== END 2025-06-06 11:14 | disposition home or self-care (01) ==
PROVIDERS: Anesthesiology; PCP Student in an Organized Health Care Education/Training Program; Visit Provider Urology
PROC: (CPT 57288; principal; 2025-06-06 09:45)
DX: N39.3 Stress incontinence (female) (male) (principal); F32.A Depression, unspecified; F12.90 Cannabis use, unspecified, uncomplicated; Z79.85 Long-term (current) use of injectable non-insulin antidiabetic drugs; Z98.890 Other specified postprocedural states; Z98.51 Tubal ligation status; Z87.891 Personal history of nicotine dependence; Z80.3 Family history of malignant neoplasm of breast
CPT/HCPCS: 57288; 36415; 80048; J0690; C1771; J2704; J3010; J7120